=== PATIENT | male | born 1995 | race African-American/Black ===

== ENCOUNTER 2019-01-29 09:27 | Emergency (ER) | payer MEDICAID ==
[2019-01-29] MEDS ORDERED: predniSONE TAB* 50 MG PO ONE (10:43)
[2019-01-29] MEDS ORDERED: diPHENhydraMINE PO* 25 MG PO ONE (10:44)
[2019-01-29] MEDS ORDERED: Famotidine TAB* 20 MG PO ONE (10:44)
[2019-01-29 11:27] VITALS: BP 114/65
--- NOTE | 2019-01-29 12:09 | ED ---
Skin Complaint - HPI Summary HPI Summary: Patient is a 23-year-old male with no significant PMH sending to the ED with itching, erythema and dryness to the bilateral cheeks over the hairline of his facial hair. He states he had the exact same reaction last year to the right forearm and was treated well with Benadryl, symptoms completely resolving within 12 hours. He states the same symptoms began yesterday on his face. He denies any new lotions, soaps, laundry detergents, clothing, new environments. He denies any known allergies. He states he awoke suddenly with the symptoms. He denies any dysphagia or odynophagia. He denies any airway involvement, SOB or CP. He states he has not tried to take anything [id number] for relief. He denies any pain to the area. - History of Current Complaint Chief Complaint: EDRashSkinAbscess Time Seen by Provider: 01/29/19 10:02 Stated Complaint: SKIN ISSUE PER PT Hx Obtained From: Patient Onset/Duration: Started Hours Ago Skin Exposure Onset/Duration: Hours Ago Timing: Constant Onset Severity: Mild Current Severity: Mild Pain Intensity: 0 Pain Scale Used: 0-10 Numeric Skin Location: Other: Aggravating Symptom(s): Nothing Alleviating Symptom(s): Nothing Associated Signs & Symptoms: Negative - Allergy/Home Medications Allergies/Adverse Reactions: Allergies Allergy/AdvReac Type Severity Reaction Status Date / Time No Known Allergies Allergy Verified 01/29/19 09:35 PMH/Surg Hx/FS Hx/Imm Hx Previously Healthy: Yes - Immunization History Hx Pertussis Vaccination: No Immunizations Up to Date: Yes Infectious Disease History: No Infectious Disease History: Denies: Traveled Outside the [place] in Last 30 Days - Social History Occupation: Employed Full-time - [place] [employer] Lives: With Family Alcohol Use: None Substance Use Type: Reports: None Smoking Status (MU): Former Smoker Review of Systems Constitutional: Negative Negative: Fever, Chills, Fatigue, Skin Diaphoresis Negative: Palpitations, Chest Pain Negative: Shortness Of Breath, Cough Negative: Arthralgia, Myalgia Positive: Other - dry rash to the bilateral cheeks near hairline - raised papules without macules or pustules Neurological: Negative All Other Systems Reviewed And Are Negative: Yes Physical Exam Triage Information Reviewed: Yes Vital Signs On Initial Exam: Initial Vitals Temp Pulse Resp BP Pulse Ox 98.3 F 72 18 128/68 99 01/29/19 09:31 01/29/19 09:31 01/29/19 09:31 01/29/19 09:31 01/29/19 09:31 Vital Signs Reviewed: Yes Appearance: Positive: Well-Appearing, Well-Nourished Skin: Positive: Warm, Skin Color Reflects Adequate Perfusion Head/Face: Positive: Normal Head/Face Inspection Eyes: Positive: EOMI, [place], Conjunctiva Clear Neck: Positive: Supple, No Lymphadenopathy Respiratory/Lung Sounds: Positive: Clear to Auscultation, Breath Sounds Present Cardiovascular: Positive: RRR, Pulses are Symmetrical in both Upper and Lower Extremities Musculoskeletal: Positive: Strength/ROM Intact Neurological: Positive: Speech Normal Psychiatric: Positive: Affect/Mood Appropriate Diagnostics - Vital Signs Vital Signs Temp Pulse Resp BP Pulse Ox 01/29/19 11:27 98 F 68 16 114/65 98 01/29/19 09:31 98.3 F 72 18 128/68 99 - Laboratory Lab Statement: Any lab studies that have been ordered have been reviewed, and results considered in the medical decision making process. Course/Dx - Course Course Of Treatment: Physical examination, there is erythema and dryness to the bilateral cheeks over the hairline. He states he experienced the same rash last year which was treated well with Benadryl. He has not tried to take any Benadryl prior to arrival. He endorses pruritus, dryness, erythema without weeping lesions. Denies any dysphagia or odynophagia. Denies any airway compromise or shortness of breath. He is given famotidine, Benadryl and prednisone in the ED. He is also prescribed these medications. He is diagnosed with atopic dermatitis/allergic dermatitis. He will follow up with PCP or dermatology. - Diagnoses Provider Diagnoses: Allergic dermatitis Discharge - Sign-Out/Discharge Documenting (check all that apply): Patient Departure Patient Received Moderate/Deep Sedation with Procedure: No - Discharge Plan Condition: Stable Disposition: HOME Prescriptions: diPHENhydraMINE PO* [Benadryl PO 25 MG TAB*] 25 mg PO Q6H PRN #12 tab PRN Reason: Itching Famotidine TAB 40 MG(NF) [Pepcid TAB 40 MG(NF)] 40 mg PO DAILY #6 tab predniSONE TAB* [Deltasone TAB*] 50 mg PO DAILY #4 tab MDD 1 Patient Education Materials: Dermatitis (ED) Forms: *Work Release Referrals: No Primary Care Phys,NOPCP [Primary Care Provider] - Additional Instructions: Prednisone once daily 5 days Benadryl 25 mg up to 4 times daily for itching and dermatitis symptoms Famotidine 40 mg once daily Do not put any creams or lotions on the area - Billing Disposition and Condition Condition: STABLE Disposition: Home
== END 2019-01-29 11:27 | disposition home or self-care (01) ==
LOC: ED 09:27
DX: L23.9 Allergic contact dermatitis, unspecified cause (principal); Z87.891 Personal history of nicotine dependence
CPT/HCPCS: 99282; A9270-GY; J7512